=== PATIENT | female | born 1940 | race Caucasian/White ===

== ENCOUNTER 2020-11-06 16:58 | Observation (INO) ==
[2020-11-06] MEDS ORDERED: *HR* FentaNYL (PF) 100 MCG/2 ML VIAL IVP ONE (18:20)
[2020-11-06 18:43] LABS: Hematocrit 33.2 % (35.3-44.9); Hemoglobin 9.8 g/dL (11.5-15.4); Mean Corpuscular HGB Conc 29.5 g/dL (31.6-35.5); Mean Corpuscular Hemoglobin 24.9 pg (28.0-33.3); Mean Corpuscular Volume 84.3 fL (83.0-100.0); Mean Platelet Volume 9.8 fL (9.4-12.4); Platelet Count 232 K/mcL (140-400); Red Blood Count 3.94 M/mcL (3.82-4.97); Red Cell Distribution Width 15.9 % (11.5-14.5); White Blood Count 9.7 K/mcL (4.3-11.1)
[2020-11-06 18:53] LABS: Prothrombin Time 33.9 Seconds (9.4-12.1)
[2020-11-06 19:08] LABS: Troponin I < 0.03 ng/mL (< 0.04)
[2020-11-06] MEDS ORDERED: Isovue-370 500 ML BOTTLE IVP ONE (19:20)
[2020-11-06] MEDS ORDERED: 0.9 % Sodium Chloride 1,000 ML IVC ONE (19:25)
[2020-11-06 19:32] LABS: BUN/Creatinine Ratio 22 (6-26); Blood Urea Nitrogen 30 mg/dL (8-23); Carbon Dioxide 25 mEq/L (23-29); Chloride 107 mEq/L (98-107); Glucose 106 mg/dL (70-105); Osmolality,Calculated 299 (280-300); Potassium 4.7 mEq/L (3.5-5.1); Sodium 141 mEq/L (136-145); eGFR For African Americans 45 (> 60); eGFR For Non-African Americans 37 (> 60)
[2020-11-06] MEDS ORDERED: 0.9 % Sodium Chloride 500 ML IVC ONE (19:39)
[2020-11-06] MEDS ORDERED: *HR* HYDROmorphone (PF) 1 MG/ML SYRINGE IVP ONE (21:01)
[2020-11-06] MEDS ORDERED: MetroNIDAZOLE 500 MG/100 ML 500 MG/100 ML BAG IVPB ONE (21:03)
[2020-11-06] MEDS ORDERED: levoFLOXacin 500 MG/100 ML 500 MG/100 ML BAG IVPB ONE (21:03)
[2020-11-07] MEDS ORDERED: *HR* HYDROmorphone 2 MG/ML SYRINGE IVP ONE (05:41)
[2020-11-07] MEDS ORDERED: Ondansetron 4 MG/2 ML VIAL IVP ONE (05:54)
[2020-11-07] MEDS ORDERED: Ondansetron 4 MG/2 ML VIAL ONE (05:55)
[2020-11-07] MEDS ORDERED: Ondansetron ODT 4 MG TAB.RAPDIS SL PRN (07:05)
[2020-11-07] MEDS ORDERED: Acetaminophen 325 MG TABLET PO PRN (07:05)
[2020-11-07] MEDS ORDERED: predniSONE 20 MG TABLET PO SCH (09:30)
[2020-11-07] MEDS ORDERED: cefTRIAXone 2,000 MG in Water for inj. (sterile) 20 ML IVP SCH (10:00)
[2020-11-07] MEDS ORDERED: Azithromycin 500 MG in 0.9 % Sodium Chloride 250 ML IVPB SCH (10:00)
[2020-11-07] MEDS ORDERED: Aspirin 81 MG TAB.CHEW PO SCH (14:30)
[2020-11-07] MEDS: Ipratropium/Albuterol Neb 3 ML IH SCH ×4 (14:30→23:08)
[2020-11-07] MEDS ORDERED: Warfarin perPT PO PRN (18:00)
[2020-11-08 02:39] LABS: Hematocrit 29.1 % (35.3-44.9); Hemoglobin 8.9 g/dL (11.5-15.4); Mean Corpuscular HGB Conc 30.6 g/dL (31.6-35.5); Mean Corpuscular Hemoglobin 25.3 pg (28.0-33.3); Mean Corpuscular Volume 82.7 fL (83.0-100.0); Mean Platelet Volume 10.1 fL (9.4-12.4); Platelet Count 199 K/mcL (140-400); Red Blood Count 3.52 M/mcL (3.82-4.97); White Blood Count 14.6 K/mcL (4.3-11.1)
[2020-11-08 02:50] LABS: INR 3.5; Prothrombin Time 38.9 Seconds (9.4-12.1)
[2020-11-08 02:57] LABS: Potassium 4.4 mEq/L (3.5-5.1)
[2020-11-08 03:49] VITALS: BP 159/84
[2020-11-08] MEDS: Ipratropium/Albuterol Neb 3 ML IH SCH (03:55)
[2020-11-08] MEDS ORDERED: Metoprolol XL (24 HR) Succ 25 MG TAB.ER.24H PO SCH (09:00)
== END 2020-11-08 07:18 | disposition short-term general hospital (02) ==
LOC: EMEROOARM 16:58 → 2ANU 16:58
PROVIDERS: ADMIT Internal Medicine; ATTEND Internal Medicine

== ENCOUNTER 2021-01-12 10:05 | Observation (INO) ==
[2021-01-12] MEDS ORDERED: *HR* OxyCODONE/APAP 7.5/325 TABLET PO ONE (10:35)
[2021-01-12 11:03] LABS: Basophils % 0.6 %; Eosinophils # 0.1 K/mcL (0.0-0.6); Eosinophils % 1.7 %; Hematocrit 34.2 % (35.3-44.9); Hemoglobin 10.3 g/dL (11.5-15.4); Immature Granulocytes % 0.4 % (0-4); Lymphocytes # 1.5 K/mcL (0.6-4.6); Lymphocytes % 21.8 %; Mean Corpuscular HGB Conc 30.1 g/dL (31.6-35.5); Mean Corpuscular Hemoglobin 26.1 pg (28.0-33.3); Mean Corpuscular Volume 86.8 fL (83.0-100.0); Mean Platelet Volume 11.1 fL (9.4-12.4); Monocytes # 0.6 K/mcL (0.0-1.3); Monocytes % 7.9 %; Neutrophils # 4.8 K/mcL (1.6-8.9); Platelet Count 113 K/mcL (140-400); Red Blood Count 3.94 M/mcL (3.82-4.97); Red Cell Distribution Width 18.1 % (11.5-14.5); Segmented Neutrophils % 67.6 %; White Blood Count 7.1 K/mcL (4.3-11.1)
[2021-01-12 11:11] LABS: INR 2.9; Prothrombin Time 32.1 Seconds (9.4-12.1)
[2021-01-12 11:22] LABS: Blood Urea Nitrogen 20 mg/dL (8-23); Calcium 9.3 mg/dL (8.6-10.3); Carbon Dioxide 27 mEq/L (23-29); Chloride 103 mEq/L (98-107); Glucose 126 mg/dL (70-105); Osmolality,Calculated 292 (280-300); Potassium 4.6 mEq/L (3.5-5.1); Sodium 139 mEq/L (136-145)
[2021-01-12 12:09] LABS: Troponin I < 0.03 ng/mL (< 0.04)
[2021-01-12 12:40] LABS: BUN/Creatinine Ratio 15 (6-26); eGFR For African Americans 46 (> 60); eGFR For Non-African Americans 38 (> 60)
[2021-01-12] MEDS ORDERED: Ondansetron 4 MG/2 ML VIAL IVP PRN (14:38)
[2021-01-12] MEDS ORDERED: Naloxone 0.4 MG/ML INJ IVP PRN (14:38)
[2021-01-12] MEDS ORDERED: Acetaminophen 325 MG TABLET PO PRN (14:38)
[2021-01-12] MEDS: Ipratropium/Albuterol Neb 3 ML IH SCH ×2 (15:56→22:05)
[2021-01-12] MEDS: Ringers Solution, Lactated 1,000 ML IVC SCH (17:43)
[2021-01-12] MEDS: predniSONE 20 MG TABLET PO SCH (17:43)
[2021-01-12] MEDS: *HR* OxyCODONE Immed Rel 5 MG TABLET PO PRN (17:49)
[2021-01-12] MEDS ORDERED: *HR* Warfarin 0.5 MG TABLET PO ONE (18:00)
[2021-01-12] MEDS ORDERED: Warfarin perPT PO PRN (18:00)
[2021-01-12] MEDS ORDERED: *HR* Warfarin 1 MG TABLET PO ONE (18:00)
[2021-01-12] MEDS: Azithromycin 250 MG TABLET PO SCH (22:01)
[2021-01-12] MEDS: Budesonide/Formoterol 160/4.5 1 PUFF INH IH SCH (22:05)
[2021-01-13] MEDS: Ipratropium/Albuterol Neb 3 ML IH SCH ×4 (04:37→21:41)
[2021-01-13 04:44] LABS: Mean Corpuscular Volume 86.7 fL (83.0-100.0)
[2021-01-13 04:46] LABS: Hematocrit 28.7 % (35.3-44.9); Hemoglobin 8.5 g/dL (11.5-15.4); Immature Granulocytes % 0.2 % (0-4); Immature Platelets 5.2 % (1.1-6.1); Lymphocytes % 10.9 %; Mean Corpuscular HGB Conc 29.6 g/dL (31.6-35.5); Mean Corpuscular Hemoglobin 25.7 pg (28.0-33.3); Mean Platelet Volume 10.8 fL (9.4-12.4); Neutrophils # 3.6 K/mcL (1.6-8.9); Platelet Count 100 K/mcL (140-400); Red Blood Count 3.31 M/mcL (3.82-4.97); Red Cell Distribution Width 18.1 % (11.5-14.5); Segmented Neutrophils % 87.9 %; White Blood Count 4.1 K/mcL (4.3-11.1)
[2021-01-13 04:47] LABS: Lymphocytes # 0.5 K/mcL (0.6-4.6)
[2021-01-13 04:51] LABS: INR 3.6
[2021-01-13 05:07] LABS: Albumin 3.2 g/dL (3.5-5.7); Albumin/Globulin Ratio 1.3 (1.1-2.2); Bilirubin,Total 0.4 mg/dL (0.3-1.0); Calcium 8.4 mg/dL (8.6-10.3); Globulin 2.5 g/dL (2.4-3.5); Magnesium 1.9 mg/dL (1.6-2.6); Phosphorous 3.2 mg/dL (2.7-4.5); Potassium 4.8 mEq/L (3.5-5.1); Total Protein 5.7 g/dL (6.4-8.9)
[2021-01-13 05:09] LABS: % Iron Saturation 5 % (15-50); Iron 16 mcg/dL (50-170); Transferrin 243 mg/dL (203-362)
[2021-01-13 05:26] LABS: Ferritin 95 ng/mL (10-120)
[2021-01-13 05:31] LABS: Folate 6.7 ng/mL (3.0-16.0)
[2021-01-13 06:07] LABS: Adenovirus Not Detected (Not Detect); Bordetella Pertussis Not Detected (Not Detect); Chlamydophila pneumoniae Not Detected (Not Detect); Coronavirus 229E Not Detected (Not Detect); Coronavirus HKU1 Not Detected (Not Detect); Coronavirus NL63 Not Detected (Not Detect); Coronavirus OC43 Not Detected (Not Detect); Human Metapneumovirus Not Detected (Not Detect); Human Rhinovirus/Enterovirus Not Detected (Not Detect); Influenza A Subtype 2009 H1 Not Detected (Not Detect); Influenza B Not Detected (Not Detect); Mycoplasma pneumoniae Not Detected (Not Detect); Parainfluenza Virus 1 Not Detected (Not Detect); Parainfluenza Virus 2 Not Detected (Not Detect); Parainfluenza Virus 3 Not Detected (Not Detect); Parainfluenza Virus 4 Not Detected (Not Detect); Respiratory Syncytial Virus Not Detected (Not Detect); SARS-CoV-2 Not Detected (Not Detect)
[2021-01-13] MEDS: *HR* OxyCODONE Immed Rel 5 MG TABLET PO PRN ×2 (08:27→15:11)
[2021-01-13] MEDS: predniSONE 20 MG TABLET PO SCH (08:27)
[2021-01-13] MEDS: Aspirin 81 MG TAB.CHEW PO SCH (08:28)
[2021-01-13] MEDS: Azithromycin 250 MG TABLET PO SCH (08:28)
[2021-01-13] MEDS ORDERED: Metoprolol XL (24 HR) Succ 25 MG TAB.ER.24H PO SCH (09:00)
[2021-01-13] MEDS: Budesonide/Formoterol 160/4.5 1 PUFF INH IH SCH ×2 (10:24→21:42)
[2021-01-13] MEDS: polyethylene glycoL 3350 17 GM POWD.PACK PO SCH (15:11)
[2021-01-13] MEDS: Ringers Solution, Lactated 1,000 ML IVC SCH (15:12)
[2021-01-13] MEDS: Sennosides/Docusate Sodium TABLET PO SCH ×2 (18:39→22:29)
[2021-01-14] MEDS: Ipratropium/Albuterol Neb 3 ML IH SCH ×3 (03:58→15:57)
[2021-01-14 05:27] LABS: Basophils % 0.1 %; Hematocrit 28.6 % (35.3-44.9); Hemoglobin 8.7 g/dL (11.5-15.4); Immature Granulocytes % 0.5 % (0-4); Lymphocytes # 1.1 K/mcL (0.6-4.6); Lymphocytes % 7.5 %; Mean Corpuscular HGB Conc 30.4 g/dL (31.6-35.5); Mean Corpuscular Hemoglobin 26.4 pg (28.0-33.3); Mean Corpuscular Volume 86.7 fL (83.0-100.0); Mean Platelet Volume 11.3 fL (9.4-12.4); Monocytes # 0.9 K/mcL (0.0-1.3); Monocytes % 5.7 %; Neutrophils # 12.9 K/mcL (1.6-8.9); Platelet Count 139 K/mcL (140-400); Red Cell Distribution Width 18.3 % (11.5-14.5); Segmented Neutrophils % 86.2 %
[2021-01-14 05:39] LABS: Calcium 8.7 mg/dL (8.6-10.3); Magnesium 1.9 mg/dL (1.6-2.6); Potassium 4.7 mEq/L (3.5-5.1)
[2021-01-14] MEDS: Azithromycin 250 MG TABLET PO SCH (08:53)
[2021-01-14] MEDS: *HR* HYDROcodone/Acet 5/325 mg TABLET PO PRN ×2 (08:53→15:25)
[2021-01-14] MEDS: predniSONE 20 MG TABLET PO SCH (08:53)
[2021-01-14] MEDS: polyethylene glycoL 3350 17 GM POWD.PACK PO SCH (08:53)
[2021-01-14] MEDS: Sennosides/Docusate Sodium TABLET PO SCH (08:54)
[2021-01-14] MEDS: Aspirin 81 MG TAB.CHEW PO SCH (08:54)
[2021-01-14] MEDS ORDERED: Metoprolol XL (24 HR) Succ 25 MG TAB.ER.24H PO SCH (09:00)
[2021-01-14] MEDS: Budesonide/Formoterol 160/4.5 1 PUFF INH IH SCH (10:36)
[2021-01-14 11:33] VITALS: TEMP 97.9
[2021-01-14 16:08] VITALS: BP 130/54; PULSE 68; O2SAT 97
[2021-01-14 16:23] LABS: INR 3.1; Prothrombin Time 34.6 Seconds (9.4-12.1)
[2021-01-14] MEDS ORDERED: *HR* Warfarin 1 MG TABLET PO ONE (18:00)
== END 2021-01-14 18:20 | disposition home health service (06) ==
LOC: 3NENU 10:05 → EMEROOARM 10:05 → SUATTDRO 12:33 → 3NENU 14:05
PROVIDERS: ADMIT Internal Medicine; ATTEND Pharmacist

== ENCOUNTER 2021-01-16 10:49 | Inpatient (IN) ==
[2021-01-16] MEDS ORDERED: Isovue-370 500 ML BOTTLE IVP ONE ×2 (11:27→13:09)
[2021-01-16] MEDS ORDERED: *HR* FentaNYL (PF) 100 MCG/2 ML VIAL IVP ONE ×2 (11:31→14:07)
[2021-01-16 11:56] LABS: Basophils % 0.1 %; Eosinophils % 0.1 %; Hematocrit 25.8 % (35.3-44.9); Hemoglobin 7.7 g/dL (11.5-15.4); Immature Granulocytes % 0.5 % (0-4); Lymphocytes # 1.2 K/mcL (0.6-4.6); Lymphocytes % 11.1 %; Mean Corpuscular HGB Conc 29.8 g/dL (31.6-35.5); Mean Corpuscular Hemoglobin 26.3 pg (28.0-33.3); Mean Corpuscular Volume 88.1 fL (83.0-100.0); Mean Platelet Volume 10.6 fL (9.4-12.4); Monocytes % 8.6 %; Neutrophils # 8.7 K/mcL (1.6-8.9); Platelet Count 107 K/mcL (140-400); Red Blood Count 2.93 M/mcL (3.82-4.97); Red Cell Distribution Width 17.9 % (11.5-14.5); Segmented Neutrophils % 79.6 %
[2021-01-16 12:22] LABS: Albumin 3.3 g/dL (3.5-5.7); Albumin/Globulin Ratio 1.4 (1.1-2.2); Bilirubin,Direct 0.1 mg/dL (0.0-0.2); Bilirubin,Indirect 0.6 mg/dL (0.0-1.0); Bilirubin,Total 0.7 mg/dL (0.3-1.0); Calcium 8.7 mg/dL (8.6-10.3); Globulin 2.4 g/dL (2.4-3.5); Potassium 4.7 mEq/L (3.5-5.1); Total Protein 5.7 g/dL (6.4-8.9); Troponin I 0.03 ng/mL (< 0.04)
[2021-01-16 12:28] LABS: Activated Partial Thrombo Time 32.6 Seconds (26.0-36.0)
[2021-01-16 12:40] LABS: INR 1.5; Prothrombin Time 16.8 Seconds (9.4-12.1)
[2021-01-16] MEDS ORDERED: cefTRIAXone 1,000 MG in 0.9 % Sodium Chloride Mini Bag 100 ML IVPB ONE (15:29)
[2021-01-16] MEDS ORDERED: 0.9 % Sodium Chloride 1,000 ML IV ONE (15:30)
[2021-01-16] MEDS ORDERED: Naloxone 0.4 MG/ML INJ IVP PRN (17:47)
[2021-01-16] MEDS ORDERED: *HR* Phytonadione 5 MG TABLET PO ONE (17:53)
[2021-01-16] MEDS: levoFLOXacin 750 MG/150 ML 750 MG/150 ML BAG IVPB SCH (20:47)
[2021-01-16 20:54] LABS: Hematocrit 23.4 % (35.3-44.9); Hemoglobin 7.1 g/dL (11.5-15.4)
[2021-01-17] MEDS: *HR* HYDROcodone/Acet 5/325 mg TABLET PO PRN ×3 (06:26→20:31)
[2021-01-17 07:46] LABS: Hemoglobin 6.8 g/dL (11.5-15.4); Immature Granulocytes % 0.6 % (0-4); Lymphocytes % 11.5 %
[2021-01-17 07:48] LABS: Basophils % 0.2 %; Eosinophils % 0.4 %; Hematocrit 22.4 % (35.3-44.9); Mean Corpuscular HGB Conc 30.4 g/dL (31.6-35.5); Mean Corpuscular Hemoglobin 26.6 pg (28.0-33.3); Mean Corpuscular Volume 87.5 fL (83.0-100.0); Mean Platelet Volume 11.1 fL (9.4-12.4); Monocytes # 0.8 K/mcL (0.0-1.3); Monocytes % 9.3 %; Neutrophils # 6.9 K/mcL (1.6-8.9); Red Blood Count 2.56 M/mcL (3.82-4.97); Red Cell Distribution Width 17.7 % (11.5-14.5); White Blood Count 8.9 K/mcL (4.3-11.1)
[2021-01-17 08:22] LABS: Calcium 8.1 mg/dL (8.6-10.3); Potassium 4.6 mEq/L (3.5-5.1)
[2021-01-17 08:36] LABS: Platelet Count 98 K/mcL (140-400)
[2021-01-17 08:37] LABS: Platelet Estimate Decreased (Normal)
[2021-01-17] MEDS ORDERED: Milk and Molasses Enema 200 ML RC ONE (10:04)
[2021-01-17] MEDS ORDERED: 0.9 % Sodium Chloride 250 ML ONE (14:25)
[2021-01-18] MEDS: *HR* HYDROcodone/Acet 5/325 mg TABLET PO PRN (06:21)
[2021-01-18 06:50] LABS: Eosinophils % 1.1 %; Hemoglobin 7.8 g/dL (11.5-15.4); Immature Granulocytes % 0.7 % (0-4); Mean Platelet Volume 10.9 fL (9.4-12.4); Segmented Neutrophils % 78.1 %
[2021-01-18 06:52] LABS: Basophils % 0.1 %; Eosinophils # 0.1 K/mcL (0.0-0.6); Hematocrit 24.6 % (35.3-44.9); Immature Platelets 5.4 % (1.1-6.1); Lymphocytes # 1.1 K/mcL (0.6-4.6); Lymphocytes % 12.2 %; Mean Corpuscular HGB Conc 31.7 g/dL (31.6-35.5); Mean Corpuscular Hemoglobin 27.8 pg (28.0-33.3); Mean Corpuscular Volume 87.5 fL (83.0-100.0); Monocytes # 0.7 K/mcL (0.0-1.3); Monocytes % 7.8 %; Platelet Count 104 K/mcL (140-400); Red Blood Count 2.81 M/mcL (3.82-4.97)
[2021-01-18 07:09] LABS: Calcium 8.2 mg/dL (8.6-10.3); Potassium 4.3 mEq/L (3.5-5.1)
[2021-01-18] MEDS ORDERED: Sennosides/Docusate Sodium TABLET PO SCH (09:00)
[2021-01-18] MEDS: Metoprolol XL (24 HR) Succ 25 MG TAB.ER.24H PO SCH (09:45)
[2021-01-18] MEDS: polyethylene glycoL 3350 17 GM POWD.PACK PO SCH (09:45)
[2021-01-18] MEDS: Aspirin 81 MG TAB.CHEW PO SCH (09:45)
[2021-01-18] MEDS: *HR* HYDROcodone/Acet 7.5/325 mg TABLET PO PRN ×2 (14:50→20:59)
[2021-01-18] MEDS: levoFLOXacin 750 MG/150 ML 750 MG/150 ML BAG IVPB SCH (17:41)
[2021-01-18] MEDS: Sennosides/Docusate Sodium TABLET PO SCH (20:59)
[2021-01-19 06:49] LABS: Basophils % 0.3 %; Eosinophils # 0.1 K/mcL (0.0-0.6); Eosinophils % 1.9 %; Hematocrit 24.1 % (35.3-44.9); Hemoglobin 7.3 g/dL (11.5-15.4); Immature Granulocytes % 0.8 % (0-4); Mean Corpuscular HGB Conc 30.3 g/dL (31.6-35.5); Mean Corpuscular Hemoglobin 26.5 pg (28.0-33.3); Mean Corpuscular Volume 87.6 fL (83.0-100.0); Mean Platelet Volume 10.2 fL (9.4-12.4); Monocytes # 0.7 K/mcL (0.0-1.3); Monocytes % 9.5 %; Neutrophils # 5.3 K/mcL (1.6-8.9); Platelet Count 108 K/mcL (140-400); Red Blood Count 2.75 M/mcL (3.82-4.97); Red Cell Distribution Width 17.2 % (11.5-14.5); Segmented Neutrophils % 73.5 %; White Blood Count 7.3 K/mcL (4.3-11.1)
[2021-01-19 07:09] LABS: Calcium 8.1 mg/dL (8.6-10.3); Potassium 4.4 mEq/L (3.5-5.1)
[2021-01-19] MEDS: polyethylene glycoL 3350 17 GM POWD.PACK PO SCH (08:23)
[2021-01-19] MEDS: Sennosides/Docusate Sodium TABLET PO SCH ×2 (08:24→20:57)
[2021-01-19] MEDS: Aspirin 81 MG TAB.CHEW PO SCH (08:24)
[2021-01-19] MEDS: *HR* HYDROcodone/Acet 7.5/325 mg TABLET PO PRN ×3 (08:24→22:13)
[2021-01-19] MEDS: Metoprolol XL (24 HR) Succ 25 MG TAB.ER.24H PO SCH (08:24)
[2021-01-20] MEDS: Sennosides/Docusate Sodium TABLET PO SCH ×2 (09:14→20:28)
[2021-01-20] MEDS: polyethylene glycoL 3350 17 GM POWD.PACK PO SCH (09:14)
[2021-01-20] MEDS: *HR* HYDROcodone/Acet 7.5/325 mg TABLET PO PRN ×2 (09:14→17:06)
[2021-01-20] MEDS: Metoprolol XL (24 HR) Succ 25 MG TAB.ER.24H PO SCH (09:14)
[2021-01-20] MEDS: Aspirin 81 MG TAB.CHEW PO SCH (09:14)
[2021-01-20] MEDS: levoFLOXacin 750 MG TABLET PO SCH (17:06)
[2021-01-21] MEDS: *HR* HYDROcodone/Acet 7.5/325 mg TABLET PO PRN ×3 (02:58→20:05)
[2021-01-21 05:10] LABS: Basophils % 0.3 %; Eosinophils # 0.2 K/mcL (0.0-0.6); Eosinophils % 2.5 %; Hematocrit 23.6 % (35.3-44.9); Hemoglobin 7.4 g/dL (11.5-15.4); Immature Granulocytes % 1.3 % (0-4); Lymphocytes % 13.2 %; Mean Corpuscular HGB Conc 31.4 g/dL (31.6-35.5); Mean Corpuscular Volume 89.4 fL (83.0-100.0); Mean Platelet Volume 10.6 fL (9.4-12.4); Monocytes # 0.8 K/mcL (0.0-1.3); Monocytes % 11.6 %; Neutrophils # 5.1 K/mcL (1.6-8.9); Platelet Count 130 K/mcL (140-400); Red Blood Count 2.64 M/mcL (3.82-4.97); Segmented Neutrophils % 71.1 %; White Blood Count 7.2 K/mcL (4.3-11.1)
[2021-01-21 05:30] LABS: Calcium 8.1 mg/dL (8.6-10.3); Potassium 4.6 mEq/L (3.5-5.1)
[2021-01-21] MEDS: Aspirin 81 MG TAB.CHEW PO SCH (07:46)
[2021-01-21] MEDS: polyethylene glycoL 3350 17 GM POWD.PACK PO SCH (07:46)
[2021-01-21] MEDS: Metoprolol XL (24 HR) Succ 25 MG TAB.ER.24H PO SCH (07:47)
[2021-01-21] MEDS: Sennosides/Docusate Sodium TABLET PO SCH ×2 (07:47→20:05)
[2021-01-22 03:09] LABS: Basophils % 0.5 %; Eosinophils # 0.2 K/mcL (0.0-0.6); Hematocrit 24.4 % (35.3-44.9); Hemoglobin 7.6 g/dL (11.5-15.4); Lymphocytes # 1.2 K/mcL (0.6-4.6); Lymphocytes % 13.9 %; Mean Corpuscular HGB Conc 31.1 g/dL (31.6-35.5); Mean Corpuscular Hemoglobin 27.8 pg (28.0-33.3); Mean Corpuscular Volume 89.4 fL (83.0-100.0); Mean Platelet Volume 10.4 fL (9.4-12.4); Monocytes # 1.2 K/mcL (0.0-1.3); Monocytes % 13.6 %; Neutrophils # 6.1 K/mcL (1.6-8.9); Platelet Count 134 K/mcL (140-400); Red Blood Count 2.73 M/mcL (3.82-4.97); Red Cell Distribution Width 16.9 % (11.5-14.5); White Blood Count 8.8 K/mcL (4.3-11.1)
[2021-01-22 03:19] LABS: BUN/Creatinine Ratio 21 (6-26); Blood Urea Nitrogen 22 mg/dL (8-23); Calcium 8.4 mg/dL (8.6-10.3); Carbon Dioxide 27 mEq/L (23-29); Chloride 106 mEq/L (98-107); Glucose 90 mg/dL (70-105); Osmolality,Calculated 289 (280-300); Potassium 4.5 mEq/L (3.5-5.1); Sodium 138 mEq/L (136-145); eGFR For African Americans > 60 (> 60); eGFR For Non-African Americans 51 (> 60)
[2021-01-22] MEDS: *HR* HYDROcodone/Acet 7.5/325 mg TABLET PO PRN (05:32)
[2021-01-22] MEDS: Sennosides/Docusate Sodium TABLET PO SCH (07:52)
[2021-01-22] MEDS: polyethylene glycoL 3350 17 GM POWD.PACK PO SCH (07:52)
[2021-01-22] MEDS: Aspirin 81 MG TAB.CHEW PO SCH (07:52)
[2021-01-22] MEDS: Metoprolol XL (24 HR) Succ 25 MG TAB.ER.24H PO SCH (07:52)
[2021-01-22 10:33] VITALS: TEMP 97.9
[2021-01-22] MEDS ORDERED: *HR* HYDROcodone/Acet 10/325 mg TABLET PO PRN (12:29)
[2021-01-22 14:09] VITALS: BP 114/49; PULSE 86; O2SAT 94
[2021-01-22 16:12] LABS: Adenovirus Not Detected (Not Detect); Bordetella Pertussis Not Detected (Not Detect); Chlamydophila pneumoniae Not Detected (Not Detect); Coronavirus 229E Not Detected (Not Detect); Coronavirus HKU1 Not Detected (Not Detect); Coronavirus NL63 Not Detected (Not Detect); Coronavirus OC43 Not Detected (Not Detect); Human Metapneumovirus Not Detected (Not Detect); Human Rhinovirus/Enterovirus Not Detected (Not Detect); Influenza A Subtype 2009 H1 Not Detected (Not Detect); Influenza B Not Detected (Not Detect); Mycoplasma pneumoniae Not Detected (Not Detect); Parainfluenza Virus 1 Not Detected (Not Detect); Parainfluenza Virus 2 Not Detected (Not Detect); Parainfluenza Virus 3 Not Detected (Not Detect); Parainfluenza Virus 4 Not Detected (Not Detect); Respiratory Syncytial Virus Not Detected (Not Detect); SARS-CoV-2 Not Detected (Not Detect)
[2021-01-22] MEDS: levoFLOXacin 750 MG TABLET PO SCH (17:07)
== END 2021-01-22 18:16 | disposition other institution (70) | DRG 193 ==
LOC: EMEROOARM 10:49 → 3ANU 10:49
PROVIDERS: ADMIT Internal Medicine; ATTEND Internal Medicine